=== PATIENT | female | born 1990 | race Caucasian/White ===

== ENCOUNTER → 2018-05-15 | Outpatient (CLI) | payer SELFPAY ==
[2018-05-15 14:34] LABS: Glucose 129 mg/dL (74-99)
[2018-05-15 14:45] LABS: HGB 11.8 gm/dL (11.4-16.0); MCH 33.1 pg (25.0-35.0); MCHC 34.7 g/dL (31.0-37.0); MCV 95.5 fL (80.0-100.0); Mean Platelet Volume 7.1; Platelet Count 290 k/uL (150-450); RBC 3.56 m/uL (3.80-5.40); WBC 8.5 k/uL (3.8-10.6)
== END | disposition home or self-care (01) ==
LOC: LABWHC1 13:35
PROVIDERS: ATTEND Obstetrics & Gynecology
DX: Z34.81 Encounter for supervision of other normal pregnancy, first trimester (principal); Z3A.00 Weeks of gestation of pregnancy not specified
CPT/HCPCS: 36415; 82565; 82947; 85027; 86762; 86780; 86850; 86900; 86901; 87340

== ENCOUNTER 2018-11-02 10:26 | Outpatient (CLI) | payer BC ==
[2018-11-02 10:39] VITALS: BP 117/67; PULSE 105; RESP 16; TEMP 97.2
--- NOTE | 2018-11-05 08:27 | P.MSEPDOC ---
Presenting Problems - Arrival Data Date of Arrival on Unit: 11/02/18 Time of Arrival on Unit: 10:26 Mode of Transport: Ambulatory - Complaint OB-Reason for Admission/Chief Complaint: NST Comment: decreased movement x 2 days Medical History - Information : 3 Para: 2 Term: 2 : 0 Abortions: Spontaneous or Elective: 0 Number of Living Children: 2 - Gestational Age Gestational Age by SAMIR (wks/days): 35 Weeks and 2 Days Review of Systems - Review of Systems Constitutional: No problems Breast: No problems ENT: No problems Cardiovascular: No problems Respiratory: No problems Gastrointestinal: No problems Genitourinary: No problems Musculoskeletal: No problems Neurological: No problems Skin: No problems Vital Signs - Temperature Temperature: 97.2 F Temperature Source: Temporal Artery Scan - Pulse Right Brachial Pulse Rate: 105 Pulse Assessment Method: Automatic Cuff - Respirations Respiratory Rate: 16 Oxygen Delivery Method: Room Air O2 Sat by Pulse Oximetry: 96 - Blood Pressure Right Arm Blood Pressure: 117/67 Blood Pressure Mean: 83 Blood Pressure Source: Automatic Cuff Medical Screen Scoring (Pre) - Cervical Exam Dilation: Exam Deferred Effacement: Exam Deferred Membranes: Intact - Uterine Contractions Frequency: N/A Duration: N/A Intensity: N/A - Maternal Vital Signs Maternal Temperature: N/A Maternal Blood Pressure: N/A - Pain Assessment Pain Scale Used: Numeric (1 - 10) Pain Intensity: 0 - Assessment Baseline FHR: 135 Heart Rate - NICHD Category: Category I (Normal) = 0 NST: Reactive Position: N/A Station: N/A - Total Score Total Score (Pre): 0 - Level of Risk Level of Risk: Low (0-5) Medical Screen Scoring (Post) - Assessment Heart Rate: 125 Heart Rate - NICHD Category: Category I (Normal) = 0 NST: Reactive - Total Score Total Score (Post): 0 - Post Treatment Level of Risk Post Treatment Level of Risk: Low (0-5) Physician Notification (Post) - Physician Notified Physician Notified Date: 11/02/18 Physician Notified Time: 11:06 Spoke With: Keaton Craig Order Received: Yes (d/c with instruction) - Notification Comment Comment: reactive, movement felt Disposition - Disposition OB Disposition: Discharge to home, Written follow up instructions reviewed Discharge Date: 11/02/18 Discharge Time: 11:10 I agree with the RN Medical Screening Exam: Yes Risk & Benefit of care provided described in d/c instruction: Yes Diagnosis: DECREASED MOVEMENTS, THIRD TRIMESTER, FETUS 1
== END 2018-11-02 11:10 | disposition home or self-care (01) ==
LOC: FBPOP 10:26
PROVIDERS: ATTEND Obstetrics & Gynecology
DX: O36.8131 Decreased fetal movements, third trimester, fetus 1 (principal); Z3A.35 35 weeks gestation of pregnancy
CPT/HCPCS: 59025; 99213

== ENCOUNTER 2018-12-05 12:00 | Inpatient (IN) | payer BC ==
[2018-12-06] MEDS ORDERED: AMPICILLIN 2,000 MG in SODIUM CHLORIDE 0.9% 100 ML IVPB STA (05:59)
[2018-12-06] MEDS ORDERED: METHYLERGONOVINE 0.2 MG/ML 1 ML AMP IM PRN (05:59)
[2018-12-06] MEDS ORDERED: OXYTOCIN 10 UNIT/ML 1 ML VIAL IM PRN (05:59)
[2018-12-06] MEDS ORDERED: TERBUTALINE 1 MG/ML VIAL SQ PRN (05:59)
[2018-12-06] MEDS ORDERED: LIDOCAINE 0.5% (PF) 5 MG/ML (50 ML SDV) SQ PRN (05:59)
[2018-12-06] MEDS ORDERED: CARBOPROST TROMETHAMINE 250 MCG/ML 1 ML AMP IM PRN (05:59)
[2018-12-06] MEDS ORDERED: OXYTOCIN 30 UNITS/500 ML NS 30 UNIT in SALINE 1 500ML.BAG IV SCH (05:59)
[2018-12-06] MEDS: LACTATED RINGERS 1,000 ML IV SCH ×3 (06:00→15:14)
[2018-12-06 06:10] VITALS: BMI 40.8
[2018-12-06 06:13] LABS: Anisocytosis Slight; Basophils % (A) 0 %; Eosinophils # (A) 0.1 k/uL (0-0.7); Eosinophils % (A) 1 %; HCT 35.4 % (34.0-46.0); HGB 11.4 gm/dL (11.4-16.0); Lymphocytes # (A) 3.1 k/uL (1.0-4.8); Lymphocytes % (A) 31 %; MCH 28.6 pg (25.0-35.0); MCHC 32.3 g/dL (31.0-37.0); MCV 88.4 fL (80.0-100.0); Mean Platelet Volume 9.2; Monocytes # (A) 0.5 k/uL (0-1.0); Monocytes % (A) 5 %; Neutrophils # (A) 6.2 k/uL (1.3-7.7); Neutrophils % (A) 61 %; Platelet Count 231 k/uL (150-450); RDW 17.7 % (11.5-15.5); WBC 10.2 k/uL (3.8-10.6)
--- NOTE | 2018-12-06 06:53 | P.HPOB ---
History of Present Illness H&P Date: 12/06/18 Chief Complaint: Requested induction of labor This patient is a pleasant 28-year-old 3 para 2 female estimated date of confinement 12/05/2018 estimated gestational age 40 and one sevenths weeks who presents to labor and delivery for requested induction of labor. Patient's care has been uncomplicated. Patient was placed on acyclovir at 36 weeks due to a past history of genital HSV. Patient has been uncomfortable and has requested delivery at this time. Review of Systems Gastrointestinal: Reports heartburn Genitourinary: Reports Menstruation: Reports amenorrhea Past Medical History Past Medical History: No Reported History History of Any Multi-Drug Resistant Organisms: None Reported Past Surgical History: No Surgical Hx Reported Past Anesthesia/Blood Transfusion Reactions: No Reported Reaction Past Psychological History: No Psychological Hx Reported Smoking Status: Never smoker Past Alcohol Use History: None Reported Past Drug Use History: None Reported - Past Family History Mother Additional Family Medical History / Comment(s): immuno-deficiency- unsure what type Medications and Allergies Home Medications Medication Instructions Recorded Confirmed Type Acyclovir 400 mg PO BID 12/06/18 12/06/18 History Pnv,Calcium 72/Iron/Folic Acid 1 each PO DAILY 12/06/18 12/06/18 History [ Plus Tablet] Allergies Allergy/AdvReac Type Severity Reaction Status Date / Time No Known Allergies Allergy Verified 12/06/18 05:54 Exam Vital Signs Temp Pulse Resp BP Pulse Ox 12/06/18 06:02 97.5 F L 115 H 16 140/84 98 Intake and Output 12/05/18 12/05/18 12/06/18 14:59 22:59 06:59 Other: Weight 97.976 kg - OBG Physical Exam Abdomen: bowel sounds normal, no diffuse tenderness, no bruit present, no guarding noted, no hepatomegaly, no splenomegaly, no mass Vulva: both: normal Vagina: normal moisture, no discharge Cervix: no lesion (Cervix is 2 cm and uneffaced minus 2 station), no discharge Uterus: enlarged (Fundal height is 40 cm) Results blood work shows she is A positive, rubella immune, RPR nonreactive, hepatitis B negative, Glucola was normal. Group B strep was positive. Most recent ultrasound showed the to be 6 lbs. 4 oz. normal anatomy. Estimated weight is 8 pounds. Result Diagrams: 12/06/18 06:02 Abnormal Lab Results - Last 24 Hours (Table) 12/06/18 Range/Units 06:02 RDW 17.7 H (11.5-15.5) % Assessment and Plan Assessment: This is a pleasant 28-year-old 3 para 2 female 40 and one sevenths weeks gestation admitted for requested induction of labor. Patient also has a positive culture for group B strep. Plan is antibiotic prophylaxis, i nduction of labor per protocol, and anticipate vaginal delivery. (1) 40 weeks gestation of Current Visit: Yes Status: Acute Code(s): Z3A.40 - 40 WEEKS GESTATION OF SNOMED Code(s): 02121526 (2) Positive testing for group B Streptococcus Current Visit: Yes Status: Acute Code(s): B95.1 - STREPTOCOCCUS, GROUP B, CAUSING DISEASES [facility] SNOMED Code(s): 373509862 (3) Elective induction of labor planned Current Visit: Yes Status: Acute Code(s): BYZ4312 - SNOMED Code(s): 681541204
[2018-12-06] MEDS: AMPICILLIN 1,000 MG in SODIUM CHLORIDE 0.9% 50 ML IVPB SCH ×2 (09:57→14:30)
[2018-12-06] MEDS ORDERED: BUTORPHANOL 1 MG/ML 1 ML VIAL IV PRN (10:04)
[2018-12-06] MEDS ORDERED: fentaNYL (PF) 50 MCG/ML 5 ML AMP ONE (13:35)
[2018-12-06] MEDS ORDERED: ROPIVACAINE 5MG/ML 20ML VIAL ONE (13:35)
[2018-12-06] MEDS ORDERED: SODIUM CHLORIDE 0.9% 100 ML BAG ONE (13:35)
[2018-12-06] MEDS ORDERED: CITRIC ACID-SODIUM CITRATE 15 ML CUP PO ONE (17:30)
[2018-12-06] MEDS ORDERED: LACTATED RINGERS 1,000 ML IV ONE (17:30)
[2018-12-06] MEDS ORDERED: ceFAZolin IN SWFI 2 GM/20 ML SYRINGE IVP ONE (17:30)
[2018-12-06] MEDS ORDERED: OXYTOCIN 10 UNIT/ML 1 ML VIAL ONE (17:55)
[2018-12-06] MEDS ORDERED: diphenhydrAMINE 50 MG/ML 1 ML VIAL ONE (17:55)
[2018-12-06] MEDS ORDERED: MORPHINE SULFATE (PF) 0.3 MG/0.3 ML SYR ONE (17:55)
[2018-12-06] MEDS ORDERED: KETOROLAC 30 MG/ML 1 ML VIAL ONE (17:55)
[2018-12-06] MEDS ORDERED: ePHEDrine SULFATE/0.9% NACL/PF 50 MG/5 ML SYRINGE IV ONE (17:55)
[2018-12-06] MEDS ORDERED: ONDANSETRON 4 MG/2 ML VIAL ONE (17:55)
[2018-12-06] MEDS ORDERED: LACTATED RINGERS 1,000 ML BAG IV ONE (17:55)
[2018-12-06] MEDS ORDERED: NALBUPHINE 10 MG/ML (1 ML AMP) ONE (17:55)
[2018-12-06] MEDS ORDERED: IBUPROFEN 600 MG TAB PO PRN (18:59)
[2018-12-06] MEDS ORDERED: NALOXONE 0.4 MG/ML 1 ML VIAL IV PRN (18:59)
[2018-12-06] MEDS ORDERED: METOCLOPRAMIDE 5 MG/ML 2 ML VIAL IVP PRN (18:59)
[2018-12-06] MEDS ORDERED: SIMETHICONE 80 MG CHEWABLE PO PRN (18:59)
[2018-12-06] MEDS ORDERED: ONDANSETRON 4 MG/2 ML VIAL IVP PRN (18:59)
[2018-12-06] MEDS ORDERED: diphenhydrAMINE 50 MG/ML 1 ML VIAL IVP PRN (18:59)
[2018-12-06] MEDS ORDERED: LANOLIN CREAM 5 GM TUBE TOPICAL PRN (18:59)
[2018-12-06] MEDS ORDERED: ACETAMINOPHEN TAB 325 MG TAB PO PRN (18:59)
[2018-12-06] MEDS ORDERED: diphenhydrAMINE 25 MG CAP PO PRN (18:59)
[2018-12-06] MEDS ORDERED: ZOLPIDEM 5 MG TAB PO PRN (18:59)
[2018-12-06] MEDS ORDERED: OXYTOCIN 20 UNITS/1000 ML NS 1,000 ML IV SCH (19:00)
--- NOTE | 2018-12-06 19:13 | P.OP ---
Date of Procedure: 12/06/18 Preoperative Diagnosis: #1: 40 and one sevenths week intrauterine . #2: Cephalopelvic dystocia. Postoperative Diagnosis: #1: Same. #2: Straight occiput posterior presentation. Procedure(s) Performed: Primary low transverse section Anesthesia: spinal Surgeon: Alexx Emmanuel Estimated Blood Loss (ml): 1,000 Urine output (ml): 100 Pathology: none sent Condition: stable Disposition: floor Indications for Procedure: Please see dictated H&P for intimate details of this patient's admission. Brief summary is a pleasant 28-year-old 3 para 2 female estimated gestational age 40 and one sevenths weeks gestation who is admitted to labor and delivery this morning for requested induction of labor. Patient is admitted she is 2 cm dilated has artificial rupture membranes for clear fluid. Labor is induced with Pitocin per protocol. She does progress and gets to anterior lip for approximately 3 hours without descent of the head past 0 station. At this time I discussed with the patient and her and we elected proceed with section for delivery. Patient does understand the risks of the surgery and risks of infection, bleeding, possible injury bowel, bladder, vessels, and/or other organs. All the patient's questions are answered and a written consent is obtained. Operative Findings: This is a vigorous viable male Apgars are 8 and 9 delivery time is 1809 hrs. Infant was then straight occiput posterior presentation. Description of Procedure: This patient has a Guerra catheter placed to straight drain. She subsequently taken to the operating room where spinal anesthetic is administered without incident. With an adequate level of anesthesia she has abdominal prep and drape. Scalpels and taken Pfannenstiel skin incision is then made. A second scalpel is taken down the fascia and the fascia scored with a knife. Fascial incision extended bilaterally using the Kang scissors. Fascia is then dissected off the rectus muscles sharply. Peritoneum was identified and entered sharply. Bladder blade is placed this time of note the bladder is up high on the lower uterine segment therefore is manually pushed down with gentle traction. Bladder peritoneum was then dissected sharply. Scalpels and taken a low transverse uterine incision is made. The hemostat I into the uterine cavity but leaving there is loss of clear fluid.'s is extended bluntly. Infant's head is then guided gently through the incision is straight occiput posterior presentation. Mouth and nares are bulb suctioned. There is no evidence of a nuchal cord. We then have deliver the rest this 's body. This is a vigorous viable male infant Apgars are 8 and 9 delivery time is 1809 hrs. After delivery of the infant the umbilical cord is doubly clamped and cut appears to be trivascular. The placenta is then manually extracted intact. Uterus is then externalized. The uterine incisions demarcated with Mcmahan clamps is quite edematous and tattered. Carefully using 0 Vicryl running locked fashion in 3 layers and closed the lower uterine segment. There is also an area on the right side which requires a [id number] stitches well. With excellent hemostasis noted at this time the bladder peritoneum was then closed using a 3-0 Vicryl. Excess fluid is removed from the abdomen and pelvis. Gently placed uterus back into the abdomen. Close careful inspection shows excellent hemostasis again. Excess clots removed from the abdomen as well as fluids. Uterus tubes and ovaries do appear normal for term gestation. The parietal peritoneum was then closed in 0 Vicryl running fashion. Rectus muscles reapproximated in 0 Vicryl interrupted fashion. Fascia is then closed using 0 PDS. Fascial incision is intact and hemostatic. Subcutaneous tissues and closed using a 3-0 Vicryl. Skin is and closed using jasmin. All counts are correct 3. Of note patient did have some blood we initially started surgery and her urine. To be traumatic in nature did clear up during surgery.. No complications.
[2018-12-06] MEDS ORDERED: HYDROmorphone 1 MG/ML 1 ML SYRINGE IVP STA (21:23)
[2018-12-07] MEDS: ceFAZolin IN SWFI 2 GM/20 ML SYRINGE IVP SCH ×2 (01:54→09:29)
[2018-12-07] MEDS: KETOROLAC 30 MG/ML 1 ML VIAL IVP PRN ×3 (02:08→17:42)
[2018-12-07] MEDS: LACTATED RINGERS 1,000 ML IV SCH ×2 (04:05→21:43)
--- NOTE | 2018-12-07 05:34 | P.PNOBGPC ---
Subjective - Subjective Patient reports: Reports appetite normal, Reports voiding normally, Reports pain well controlled, Reports ambulating normally : doing well Objective - Vital Signs Latest vital signs: Vital Signs Temp Pulse Resp BP Pulse Ox 12/07/18 04:00 98.1 F 108 H 14 119/81 12/07/18 00:00 98.3 F 110 H 14 137/82 99 12/06/18 21:15 97 16 123/60 98 12/06/18 20:45 82 16 140/74 12/06/18 20:15 83 16 149/82 98 12/06/18 20:00 98.0 F 93 16 158/81 100 12/06/18 19:45 98.1 F 82 16 135/75 98 12/06/18 19:05 100 16 90/54 95 12/06/18 18:51 98.8 F 102 H 16 97/55 95 12/06/18 06:02 97.5 F L 115 H 16 140/84 98 Intake and Output 12/06/18 12/06/18 12/07/18 14:59 22:59 06:59 Output Total 1100 450 Balance -1100 -450 Output: Urine 100 450 Estimated Blood Loss 1000 - Exam Lungs: bilateral: normal Chest: Normal S1, Normal S2 Extremities: Present: normal Abdomen: Present: normal appearance, soft. Absent: distention, tenderness Incision: Present: normal, dry, intact Uterus: Present: normal, firm - Labs Labs: Abnormal Lab Results - Last 24 Hours (Table) 12/06/18 Range/Units 06:02 RDW 17.7 H (11.5-15.5) % Assessment and Plan Assessment: Post operative day #1. Patient is resting without new complaints. Vital signs are stable she is afebrile. Uterus is firm nontender she is having normal lochia. Patient was able to ambulate last night and is having excellent urine output. CBC is pending, however I'm assuming her hemoglobin is going to be low today therefore I'm going to start her on some chromogen. Plan is to encourage ambulation, allow the patient to shower, check a CBC, advanced to a regular diet, and continue postoperative care. Dr. Wilkins will be seeing this patient over the weekend. (1) 40 weeks gestation of Current Visit: Yes Status: Acute Code(s): Z3A.40 - 40 WEEKS GESTATION OF SNOMED Code(s): 48852907 (2) Positive testing for group B Streptococcus Current Visit: Yes Status: Acute Code(s): B95.1 - STREPTOCOCCUS, GROUP B, CAUSING DISEASES [facility] SNOMED Code(s): 825889534 (3) Elective induction of labor planned Current Visit: Yes Status: Acute Code(s): HDS9169 - SNOMED Code(s): 516658016
[2018-12-07 07:00] LABS: Anisocytosis Slight; Basophils % (A) 0 %; Eosinophils % (A) 0 %; HCT 26.6 % (34.0-46.0); Hypochromasia Slight; Lymphocytes # (A) 1.8 k/uL (1.0-4.8); Lymphocytes % (A) 13 %; MCHC 32.2 g/dL (31.0-37.0); MCV 90.1 fL (80.0-100.0); Mean Platelet Volume 9.1; Monocytes # (A) 0.7 k/uL (0-1.0); Monocytes % (A) 5 %; Neutrophils # (A) 11.4 k/uL (1.3-7.7); Neutrophils % (A) 80 %; Platelet Count 178 k/uL (150-450); RBC 2.95 m/uL (3.80-5.40); WBC 14.2 k/uL (3.8-10.6)
[2018-12-07 07:12] LABS: HGB 8.5 gm/dL (11.4-16.0)
[2018-12-07] MEDS: SENNOSIDES-DOCUSATE SODIUM 1 EACH TAB PO SCH ×2 (07:53→21:44)
[2018-12-07] MEDS: IRON AG/C/B12/CA/SUC.ACID/STOM 1 EACH TAB PO SCH (07:53)
[2018-12-07] MEDS: HYDROcodone/APAP 5-325MG 1 EACH TAB PO PRN ×3 (07:54→21:56)
[2018-12-08] MEDS: HYDROcodone/APAP 5-325MG 1 EACH TAB PO PRN ×3 (02:07→11:01)
[2018-12-08] MEDS: AMPICILLIN 1,000 MG in SODIUM CHLORIDE 0.9% 50 ML IVPB SCH (03:26)
--- NOTE | 2018-12-08 06:48 | P.DS ---
Providers Date of admission: 12/06/18 05:45 Expected date of discharge: 12/08/18 Attending physician: Alexx Emmanuel Primary care physician: Stated None Hospital Course: This is a 28-year-old female 3 para 2 at 40 and one sevenths weeks who presented for induction of labor. She ended up with a primary section for failure to progress and delivered a viable male with scores of 8 at 1 minute and 9 at 5 minutes and weight of 8 lbs. 7 oz. She did have postoperative anemia and her hemoglobin did drop to 8.5 on postoperative day #1. She has been relatively asymptomatic. She denies any dizziness or lightheadedness. She is passing flatus and bowel movement. Her pain has been fairly well-controlled with Grand Chain. Lochia is decreasing. She is breast- feeding. Vital signs are stable. Abdomen is soft with positive bowel sounds 4. Incision is clean dry and intact. Extremities show negative Homans. Impression is status post primary section postoperative day #2. Plan is to discharge home later today. Routine postoperative and instructions are given. She will be given a prescription for ibuprofen and Grand Chain per Dr. Emmanuel. Opioid start talking form is signed. She is counseled regarding opioid use. She is advised to follow up with Dr. Emmanuel in approximately 1 week. She is advised to call the office if she has any further questions or concerns prior to her appointment time. Procedures: Primary low transverse section on 12/06/2018 Patient Condition at Discharge: Stable Plan - Discharge Summary New Discharge Prescriptions: New Ibuprofen [Motrin] 600 mg PO Q6HR PRN #40 tab PRN Reason: Mild Pain Or Fever >= 100.5 Iron Ag/C/B12/Ca/Suc.acid/Stom [Multigen] 1 each PO DAILY #30 tab HYDROcodone/APAP 5-325MG [Grand Chain 5-325] 2 each PO Q4HR PRN #36 tab PRN Reason: Moderate Pain No Action Acyclovir 400 mg PO BID Pnv,Calcium 72/Iron/Folic Acid [ Plus Tablet] 1 each PO DAILY Discharge Medication List Acyclovir 400 mg PO BID 12/06/18 [History] Pnv,Calcium 72/Iron/Folic Acid [ Plus Tablet] 1 each PO DAILY 12/06/18 [History] HYDROcodone/APAP 5-325MG [Grand Chain 5-325] 2 each PO Q4HR PRN #36 tab 12/07/18 [Rx] Ibuprofen [Motrin] 600 mg PO Q6HR PRN #40 tab 12/07/18 [Rx] Iron Ag/C/B12/Ca/Suc.acid/Stom [Multigen] 1 each PO DAILY #30 tab 12/07/18 [Rx] Follow up Appointment(s)/Referral(s): Alexx Emmanuel MD [STAFF PHYSICIAN] - 12/18/18 1:30 pm (Please see me for a visit on January 21 at 9:30 AM also.) Patient Instructions/Handouts: (DC) Activity/Diet/Wound Care/Special Instructions: No intercourse or anything per vagina for 6 weeks. No heavy lifting or strenuous activity for 6 weeks. Please call if any fever, chills, excessive vaginal bleeding, and/or abdominal pain. Discharge Disposition: HOME SELF-CARE
[2018-12-08] MEDS: SENNOSIDES-DOCUSATE SODIUM 1 EACH TAB PO SCH (09:08)
[2018-12-08 09:58] VITALS: BP 133/84; PULSE 113; RESP 14; TEMP 98.4
[2018-12-08] MEDS: IRON AG/C/B12/CA/SUC.ACID/STOM 1 EACH TAB PO SCH (11:02)
== END 2018-12-08 12:44 | disposition home or self-care (01) | DRG 788 ==
LOC: 4FBP 12-06 05:45
PROVIDERS: ADMIT Obstetrics & Gynecology; ATTEND Obstetrics & Gynecology
PROC: 10907ZC Drainage of Amniotic Fluid, Therapeutic from Products of Conception, Via Natural or Artificial Opening (ICD-10-PCS; 2018-12-06)
PROC: 3E033VJ Introduction of Other Hormone into Peripheral Vein, Percutaneous Approach (ICD-10-PCS; 2018-12-06)
PROC: 10D00Z1 Extraction of Products of Conception, Low, Open Approach (ICD-10-PCS; principal; 2018-12-06 17:48)
DX: O65.4 Obstructed labor due to fetopelvic disproportion, unspecified (principal); O99.824 Streptococcus B carrier state complicating childbirth; O99.02 Anemia complicating childbirth; D64.9 Anemia, unspecified; O62.2 Other uterine inertia; Z37.0 Single live birth; Z3A.40 40 weeks gestation of pregnancy
CPT/HCPCS: 85025; 86850; 86900; 86901

== ENCOUNTER → 2021-07-22 | Outpatient (CLI) | payer BC ==
[2021-07-22 15:36] LABS: Basophils # (A) 0.1 k/uL (0-0.2); Basophils % (A) 1 %; Eosinophils # (A) 0.1 k/uL (0-0.7); Eosinophils % (A) 1 %; HCT 39.1 % (34.0-46.0); HGB 13.2 gm/dL (11.4-16.0); Lymphocytes # (A) 2.7 k/uL (1.0-4.8); Lymphocytes % (A) 30 %; MCH 32.2 pg (25.0-35.0); MCHC 33.8 g/dL (31.0-37.0); MCV 95.3 fL (80.0-100.0); Monocytes # (A) 0.4 k/uL (0-1.0); Monocytes % (A) 4 %; Neutrophils # (A) 5.7 k/uL (1.3-7.7); Neutrophils % (A) 64 %; Platelet Count 239 k/uL (150-450); RDW 12.1 % (11.5-15.5)
== END | disposition home or self-care (01) ==
LOC: LABWHC1 14:18
PROVIDERS: ATTEND Obstetrics & Gynecology
DX: Z01.812 Encounter for preprocedural laboratory examination (principal)
CPT/HCPCS: 85025

== ENCOUNTER 2021-07-29 06:25 | Day surgery (SDC) | payer BC ==
[2021-07-27 15:47] VITALS: BMI 34.0
--- NOTE | 2021-07-28 18:37 | P.HPOB ---
History of Present Illness H&P Date: 07/28/21 Chief Complaint: Menorrhagia This patient is a pleasant 31-year-old 3 para 3 female who has had long- standing menorrhagia is now requesting endometrial ablation for treatment. Patient's evaluation has included a pelvic ultrasound which was normal. Patient is not interested in hormonal options for cycle control is requesting ablation at this time. Patient's partner her has had a vasectomy for control. Review of Systems Genitourinary: Reports as per HPI Menstruation: Reports as per HPI, Reports period heavy Past Medical History Past Medical History: No Reported History Additional Past Medical History / Comment(s): heavy long menstrual periods for past year History of Any Multi-Drug Resistant Organisms: None Reported Past Surgical History: Section Past Anesthesia/Blood Transfusion Reactions: Motion Sickness, Postoperative Nausea & Vomiting (PONV) Additional Past Anesthesia/Blood Transfusion Reaction / Comment(s): felt like diff breathing during Past Psychological History: No Psychological Hx Reported Smoking Status: Never smoker Past Drug Use History: None Reported - Past Family History Mother Additional Family Medical History / Comment(s): immuno-deficiency- unsure what type Medications and Allergies Home Medications Medication Instructions Recorded Confirmed Type Acyclovir 400 mg PO BID PRN 12/06/18 07/27/21 History Allergies Allergy/AdvReac Type Severity Reaction Status Date / Time No Known Allergies Allergy Verified 07/27/21 15:39 Exam - OBG Physical Exam Abdomen: bowel sounds normal, no diffuse tenderness, no bruit present, no guarding noted, no hepatomegaly, no splenomegaly, no mass Vulva: both: normal Vagina: normal moisture, no discharge Cervix: no lesion, no discharge Uterus: normal size, normal contour Results Ultrasound previously was normal. Assessment and Plan Assessment: This is a pleasant 31-year-old 3 para 3 female with long-standing menorrhagia requesting endometrial ablation. Plan is hysteroscopy, D&C, and Jennifer endometrial ablation. I have discussed the surgery and risks with the patient. She understands the risks of infection, bleeding, possible uterine perforation, and/or thermal injury. All the patient's questions are answered and written consent is obtained. (1) Menorrhagia Status: Chronic Code(s): N92.0 - EXCESSIVE AND FREQUENT MENSTRUATION WITH REGULAR CYCLE SNOMED Code(s): 535869678
[~2021-07-29 06:25] MED LIST: LACTATED RINGERS 1,000 ML IV SCH; Pre Op ABX Message 1 EACH MISC MISCELLANE ONE
[2021-07-29] MEDS ORDERED: LIDOCAINE 1% (10MG/ML) FOR IV START INTRADERMA ONE (06:57)
[2021-07-29] MEDS ORDERED: HYDROmorphone 0.5 MG/0.5 ML SYRINGE IVP PRN (07:00)
[2021-07-29 07:04] VITALS: RESP 16
[2021-07-29] MEDS: ONDANSETRON 4 MG/2 ML VIAL IVP ONE ×2 (07:04→07:38)
[2021-07-29] MEDS: DEXAMETHASONE SOD PHOSPHATE 4 MG/ML 1 ML VIAL IV ONE ×2 (07:04→07:38)
[2021-07-29] MEDS ORDERED: SCOPOLAMINE 1.5MG/72HR PATCH TRANSDERM ONE (07:04)
[2021-07-29] MEDS ORDERED: fentaNYL (PF) 50 MCG/ML 2 ML AMP ONE (07:36)
[2021-07-29] MEDS ORDERED: PROPOFOL 10 MG/ML 20 ML VIAL IV ONE (07:36)
[2021-07-29] MEDS ORDERED: KETOROLAC 15 MG/ML 1 ML VIAL ONE (07:36)
[2021-07-29] MEDS ORDERED: LIDOCAINE 1% INJ 10MG/ML (20 ML MDV) ONE (07:36)
[2021-07-29] MEDS ORDERED: MIDAZOLAM 2 MG/2 ML VIAL ONE (07:36)
--- NOTE | 2021-07-29 08:18 | P.OP ---
Date of Procedure: 07/29/21 Preoperative Diagnosis: Menorrhagia Postoperative Diagnosis: Same Procedure(s) Performed: #1: Hysteroscopy. #2: Dilation and curettage. #3:Jennifer endometrial ablation Anesthesia: other (LMA) Surgeon: Alexx Emmanuel Estimated Blood Loss (ml): 10 Urine output (ml): 20 Pathology: other (Uterine curettings) Condition: stable Disposition: PACU Indications for Procedure: Please see dictated H&P for intimate details of this patient's admission. Brief summary this is a pleasant 31-year-old 3 para 3 female long-standing menorrhagia requesting endometrial ablation for treatment. Patient understands this surgery and risks and risks of infection, bleeding, possible uterine perforation, and/or thermal injury. All the patient's questions are answered and a written consent is obtained. Operative Findings: This patient had a normal-appearing endometrial cavity. Description of Procedure: This patient is taken to the operating room where she is laid in the supine position. She subsequent undergoes general anesthesia without incident. With adequate level of anesthesia was placed in dorsal lithotomy position. She has a vaginal perineal prep and drape. Examination under anesthesia shows a slightly retroverted uterus of normal size. Bladder is drained at this time for 20 mL of clear urine. Weighted speculum was placed in the posterior vagina and the anterior lip of the cervix is grabbed with an Allis clamp. Uterus is then sounded to 8.5 cm. Gentle dilation is then done of the endocervix to allow the hysteroscope easily and the uterine cavity oozing saline solution, hysteroscopy is performed and the uterine cavity length is calculated to be 6 cm. There is no evidence of any polyps or fibroids and the endometrium. The hysteroscope was then removed. The cervix is dilated slightly more to allow a small curette in the uterine cavity and gentle but thorough 4 quadrant curettage is then done. This tissue sent off to pathology. The Jennifer device is then opened. It is se t at a length of 6.0 cm. It is connected and passes the device test. With this done the handpieces seated in the uterine cavity. After insufflation of the balloon the device is enabled after passing cavity integrity test. After 120 seconds the device is removed. Hysteroscopy is then performed again. Cavity appears ablated up to the endocervix. Excellent results are noted. With this done the procedure is then ended. The weighted speculum and Allis clamp removed. All counts are correct 3. There are no complications. Patient is awakened from anesthesia and taken recovery room satisfactory condition.
[2021-07-29 08:21] VITALS: TEMP 97
[2021-07-29 09:41] VITALS: BP 137/63; PULSE 89
== END 2021-07-29 10:25 | disposition home or self-care (01) ==
LOC: OR 06:25
PROVIDERS: ATTEND Obstetrics & Gynecology
DX: N92.0 Excessive and frequent menstruation with regular cycle (principal)
CPT/HCPCS: 58563; 81025; 88305; 84703; J2250; J1100; J2405; J2001; J3010; J1885; J2704

== ENCOUNTER 2022-01-04 16:17 | Emergency (ER) | payer BC ==
[2022-01-04 16:42] VITALS: TEMP 98.2
[2022-01-04 17:19] LABS: ALT 35 U/L (4-34); AST 61 U/L (14-36); African American GFR (CKD) >90 (>60 ml/min/1.73 sqM); Albumin 4.8 g/dL (3.5-5.0); Alkaline Phosphatase 69 U/L (38-126); Anion Gap 10 mmol/L; Blood Urea Nitrogen 15 mg/dL (7-17); Calcium 9.7 mg/dL (8.4-10.2); Carbon Dioxide 23 mmol/L (22-30); Chloride 103 mmol/L (98-107); Glucose 110 mg/dL (74-99); Non-African American GFR(CKD) >90 (>60 ml/min/1.73 sqM); Potassium 4.2 mmol/L (3.5-5.1); Sodium 136 mmol/L (137-145); Total Protein 7.7 g/dL (6.3-8.2)
[2022-01-04 17:22] LABS: Basophils % (A) 1 %; Eosinophils # (A) 0.1 k/uL (0-0.7); Eosinophils % (A) 1 %; HGB 13.7 gm/dL (11.4-16.0); Lymphocytes # (A) 2.8 k/uL (1.0-4.8); Lymphocytes % (A) 36 %; MCH 31.3 pg (25.0-35.0); MCHC 32.6 g/dL (31.0-37.0); MCV 96.1 fL (80.0-100.0); Mean Platelet Volume 8.5; Monocytes # (A) 0.3 k/uL (0-1.0); Monocytes % (A) 4 %; Neutrophils # (A) 4.3 k/uL (1.3-7.7); Neutrophils % (A) 56 %; Platelet Count 238 k/uL (150-450); RBC 4.37 m/uL (3.80-5.40); RDW 12.5 % (11.5-15.5); WBC 7.7 k/uL (3.8-10.6)
[2022-01-04 17:26] LABS: INR 0.9 (<1.2); Partial Thromboplastin Time 26.2 sec (22.0-30.0); Prothrombin Time 10.2 sec (9.0-12.0)
[2022-01-04] MEDS ORDERED: MAG HYDROX/AL HYDROX/SIMETH 30 ML, HYOSCYAMINE ELIXIR 10 ML, LIDOCAINE VISCOUS 2% 10 ML PO STA ×3 (18:10)
--- NOTE | 2022-01-04 18:36 | ED ---
General Adult HPI - General Chief complaint: Chest Pain Stated complaint: Chest pain/abd pain Time Seen by Provider: 01/04/22 17:59 Source: patient Mode of arrival: ambulatory Limitations: no limitations - History of Present Illness Initial comments: Dictation was produced using [employer] dictation software. please excuse any grammatical, word or spelling errors. Chief Complaint: 31-year-old female presents to the emergency Department with abdominal pain and chest pain History of Present Illness:. 31-year-old female she has no significant comorbidities. Today she began experiencing epigastric abdominal pain. States after several minutes the symptoms felt like it was in her chest. She states that it was like a burning sensation. Nonradiating. Not associated with nausea or diaphoresis. Patient denies any history of heart problems. They do however have some family history of coronary artery disease. Patient states that her symptoms feel worse when she lies flat and when she tries to eat. She had some spicy food yesterday that she normally doesn't have spicy food. The ROS documented in this emergency department record has been reviewed and confirmed by me. Those systems with pertinent positive or negative responses have been documented in the HPI. All other systems are other negative and/or noncontributory. PHYSICAL EXAM: General Impression: Alert and oriented x3, not in acute distress HEENT: Normocephalic atraumatic, extra-ocular movements intact, pupils equal and reactive to light bilaterally, mucous membranes moist. Cardiovascular: Heart regular rate and rhythm Chest: Able to complete full sentences, no retractions, no tachypnea Abdomen: abdomen soft, non-tender, non-distended, no organomegaly Musculoskeletal: Pulses present and equal in all extremities, no peripheral edema Motor: no focal deficits noted Neurological: CN II-XII grossly intact, no focal motor or sensory deficits noted Skin: Intact with no visualized rashes Psych: Normal affect and mood ED course: 31-year-old female presents to the emergency Department with symptoms suspicious for reflux. Vital signs upon arrival are within acceptable limits. Her symptoms are very atypical for ACS. Patient reevaluated after administration of GI cocktail with significantly improved symptoms. Patient is a symptomatic. Patient is agreeable for discharge of eyes follow-up with primary care doctor. Patient told to avoid spicy foods, alcohol, large meals and eating close to bedtime. Patient advised to belt picker [id number] proton pump inhibitor. EKG interpretation: Ventricular rate 90, sinus rhythm,. 131, Gabino 100, QTC 410. No KS prolongation, no QTC prolongation, no ST or T-wave changes noted. EKG compared to [default value] showing no changes. Overall, this EKG is unremarkable - Related Data Home Medications Medication Instructions Recorded Confirmed Fluconazole [Diflucan] 150 mg PO QMONTHLY 01/04/22 01/04/22 Allergies Allergy/AdvReac Type Severity Reaction Status Date / Time No Known Allergies Allergy Verified 01/04/22 16:41 Review of Systems ROS Statement: Those systems with pertinent positive or pertinent negative responses have been documented in the HPI. ROS Other: All systems not noted in ROS Statement are negative. Past Medical History Past Medical History: No Reported History History of Any Multi-Drug Resistant Organisms: None Reported Past Surgical History: No Surgical Hx Reported Additional Past Surgical History / Comment(s): D&C Past Anesthesia/Blood Transfusion Reactions: No Reported Reaction Past Psychological History: No Psychological Hx Reported Past Alcohol Use History: Occasional - Past Family History Mother Additional Family Medical History / Comment(s): immuno-deficiency- unsure what type General Exam Limitations: no limitations Course Vital Signs 01/04/22 01/04/22 01/04/22 16:37 18:41 18:54 Temperature 98.2 F Pulse Rate 87 70 78 Respiratory 24 16 16 Rate Blood Pressure 119/76 109/77 109/77 O2 Sat by Pulse 100 97 98 Oximetry Medical Decision Making - Lab Data Result diagrams: 01/04/22 16:46 01/04/22 16:46 Lab Results 01/04/22 01/04/22 01/04/22 Range/Units 16:46 16:46 16:46 WBC 7.7 (3.8-10.6) k/uL RBC 4.37 (3.80-5.40) m/uL Hgb 13.7 (11.4-16.0) gm/dL Hct 42.0 (34.0-46.0) % MCV 96.1 (80.0-100.0) fL MCH 31.3 (25.0-35.0) pg MCHC 32.6 (31.0-37.0) g/dL RDW 12.5 (11.5-15.5) % Plt Count 238 (150-450) k/uL MPV 8.5 Neutrophils % 56 % Lymphocytes % 36 % Monocytes % 4 % Eosinophils % 1 % Basophils % 1 % Neutrophils # 4.3 (1.3-7.7) k/uL Lymphocytes # 2.8 (1.0-4.8) k/uL Monocytes # 0.3 (0-1.0) k/uL Eosinophils # 0.1 (0-0.7) k/uL Basophils # 0.0 (0-0.2) k/uL PT 10.2 (9.0-12.0) sec INR 0.9 (<1.2) APTT 26.2 (22.0-30.0) sec Sodium 136 L (137-145) mmol/L Potassium 4.2 (3.5-5.1) mmol/L Chloride 103 (98-107) mmol/L Carbon Dioxide 23 (22-30) mmol/L Anion Gap 10 mmol/L BUN 15 (7-17) mg/dL Creatinine 0.61 (0.52-1.04) mg/dL Est GFR (CKD-EPI)AfAm >90 (>60 ml/min/1.73 sqM) Est GFR (CKD-EPI)NonAf >90 (>60 ml/min/1.73 sqM) Glucose 110 H (74-99) mg/dL Calcium 9.7 (8.4-10.2) mg/dL Total Bilirubin 1.0 (0.2-1.3) mg/dL AST 61 H (14-36) U/L ALT 35 H (4-34) U/L Alkaline Phosphatase 69 (38-126) U/L Troponin I (0.000-0.034) ng/mL Total Protein 7.7 (6.3-8.2) g/dL Albumin 4.8 (3.5-5.0) g/dL 01/04/22 Range/Units 16:46 WBC (3.8-10.6) k/uL RBC (3.80-5.40) m/uL Hgb (11.4-16.0) gm/dL Hct (34.0-46.0) % MCV (80.0-100.0) fL MCH (25.0-35.0) pg MCHC (31.0-37.0) g/dL RDW (11.5-15.5) % Plt Count (150-450) k/uL MPV Neutrophils % % Lymphocytes % % Monocytes % % Eosinophils % % Basophils % % Neutrophils # (1.3-7.7) k/uL Lymphocytes # (1.0-4.8) k/uL Monocytes # (0-1.0) k/uL Eosinophils # (0-0.7) k/uL Basophils # (0-0.2) k/uL PT (9.0-12.0) sec INR (<1.2) APTT (22.0-30.0) sec Sodium (137-145) mmol/L Potassium (3.5-5.1) mmol/L Chloride (98-107) mmol/L Carbon Dioxide (22-30) mmol/L Anion Gap mmol/L BUN (7-17) mg/dL Creatinine (0.52-1.04) mg/dL Est GFR (CKD-EPI)AfAm (>60 ml/min/1.73 sqM) Est GFR (CKD-EPI)NonAf (>60 ml/min/1.73 sqM) Glucose (74-99) mg/dL Calcium (8.4-10.2) mg/dL Total Bilirubin (0.2-1.3) mg/dL AST (14-36) U/L ALT (4-34) U/L Alkaline Phosphatase (38-126) U/L Troponin I <0.012 (0.000-0.034) ng/mL Total Protein (6.3-8.2) g/dL Albumin (3.5-5.0) g/dL Disposition Clinical Impression: GERD (gastroesophageal reflux disease) Disposition: HOME SELF-CARE Condition: Fair Instructions (If sedation given, give patient instructions): GERD (Gastroe sophageal Reflux Disease) (ED) Additional Instructions: take daily proton pump inhibitor that can be picked up over the counter Is patient prescribed a controlled substance at d/c from ED?: No Referrals: Vidya Jung MD [Primary Care Provider] - 1-2 days Time of Disposition: 19:24
[2022-01-04 18:54] VITALS: RESP 16
[2022-01-04 19:37] VITALS: BP 111/61; PULSE 84
== END 2022-01-04 19:37 | disposition home or self-care (01) ==
LOC: EC 16:17
DX: K21.9 Gastro-esophageal reflux disease without esophagitis (principal)
CPT/HCPCS: 36415; 80053; 84484; 85025; 85610; 85730; 93005; 99285

== ENCOUNTER → 2022-07-14 | Outpatient (CLI) | payer BC ==
[2022-07-14 19:36] LABS: HCT 41.6 % (37.2-46.3); HGB 13.4 g/dL (12.0-15.0); MCH 31.2 pg (27.0-32.0); MCHC 32.2 g/dL (32.0-37.0); Mean Platelet Volume 12.8 fL (9.5-12.2); NRBC Per 100 WBC 0 /100 WBCS (0.0-0.0); Platelet Count 157 X 10*3/uL (140-440); RBC 4.29 X 10*6/uL (4.10-5.20); RDW 11.6 % (11.5-14.5); WBC 5.64 X 10*3/uL (4.50-10.00)
[2022-07-14 22:41] LABS: African American GFR (CKD) 133.8 (60.0-200.0); Albumin 4.7 g/dL (3.8-4.9); Albumin/Globulin Ratio 1.96 (1.60-3.17); Anion Gap 10.9 mmol/L (10.00-18.00); BUN/Creat Ratio 20.73 Ratio (12.00-20.00); Blood Urea Nitrogen 13.6 mg/dL (9.0-27.0); Carbon Dioxide 27.3 mmol/L (20.0-27.5); Globulin 2.4 g/dL (1.6-3.3); Non-African American GFR(CKD) 115.5 (60.0-200.0); Potassium 4.7 mmol/L (3.5-5.5); Total Bilirubin 1.1 mg/dL (0.30-1.20); Total Protein 7.1 g/dL (6.2-8.2)
== END | disposition home or self-care (01) ==
LOC: LABWHC1 11:12
PROVIDERS: ATTEND Family Medicine
DX: I10 Essential (primary) hypertension (principal); Z79.899 Other long term (current) drug therapy
CPT/HCPCS: 36415; 80053; 82784; 83690; 84443; 85027

== ENCOUNTER 2022-07-19 00:56 | Observation (INO) | payer BC ==
[2022-07-19] MEDS ORDERED: MORPHINE SULFATE 4 MG/ML SYRINGE IV STA (01:36)
[2022-07-19] MEDS ORDERED: SODIUM CHLORIDE 0.9% 1,000 ML IV STA ×2 (01:36)
[2022-07-19] MEDS ORDERED: KETOROLAC 15 MG/ML 1 ML VIAL IVP STA (01:36)
--- NOTE | 2022-07-19 01:37 | ED ---
Abdominal Pain HPI - General Source: patient, RN notes reviewed, old records reviewed Mode of arrival: ambulatory Limitations: no limitations - History of Present Illness MD Complaint: abdominal pain, other (RUQ) -: week(s) Location: diffuse, RUQ, epigastric Radiation: RUQ Migration to: no migration Severity: moderate Severity scale (1-10): 7 Quality: stabbing, fullness, sharp Consistency: intermittent Improves With: nothing, bowel movement Context: other (0) Associated Symptoms: nausea Treatments Prior to Arrival: other (0) <Scooby Connelly - Last Filed: 07/19/22 04:39> <Stone Thompson - Last Filed: 07/19/22 08:31> - General Chief Complaint: Abdominal Pain Stated Complaint: abd pain,gallbladder Time Seen by Provider: 07/19/22 01:36 - Related Data Home Medications Medication Instructions Recorded Confirmed Fluconazole [Diflucan] 150 mg PO QMONTHLY 01/04/22 01/04/22 Allergies Allergy/AdvReac Type Severity Reaction Status Date / Time No Known Allergies Allergy Verified 07/19/22 01:17 Review of Systems ROS Other: All systems not noted in ROS Statement are negative. <Scooby Connelly - Last Filed: 07/19/22 04:39> ROS Other: All systems not noted in ROS Statement are negative. <Stone Thompson - Last Filed: 07/19/22 08:31> ROS Statement: Those systems with pertinent positive or pertinent negative responses have been documented in the HPI. Past Medical History Past Medical History: No Reported History History of Any Multi-Drug Resistant Organisms: None Reported Past Surgical History: No Surgical Hx Reported Additional Past Surgical History / Comment(s): D&C Past Anesthesia/Blood Transfusion Reactions: No Reported Reaction Past Psychological History: No Psychological Hx Reported Smoking Status: Never smoker Past Alcohol Use History: Occasional Past Drug Use History: None Reported - Past Family History Mother Additional Family Medical History / Comment(s): immuno-deficiency- unsure what type <Scooby Connelly - Last Filed: 07/19/22 04:39> General Exam Limitations: no limitations General appearance: alert, in no apparent distress Head exam: Present: atraumatic, normocephalic, normal inspection Eye exam: Present: normal appearance, PERRL, EOMI. Absent: scleral icterus, conjunctival injection, periorbital swelling ENT exam: Present: normal exam, mucous membranes moist Neck exam: Present: normal inspection. Absent: tenderness, meningismus, lymphadenopathy Respiratory exam: Present: normal lung sounds bilaterally. Absent: respiratory distress, wheezes, rales, rhonchi, stridor Cardiovascular Exam: Present: regular rate, normal rhythm, normal heart sounds. Absent: systolic murmur, diastolic murmur, rubs, gallop, clicks GI/Abdominal exam: Present: soft, tenderness, normal bowel sounds. Absent: distended, guarding, rebound, rigid Extremities exam: Present: normal inspection, full ROM, normal capillary refill. Absent: tenderness, pedal edema, joint swelling, calf tenderness Back exam: Present: normal inspection Neurological exam: Present: alert, oriented X3, CN II-XII intact Psychiatric exam: Present: normal affect, normal mood Skin exam: Present: warm, dry, intact, normal color. Absent: rash <Scooby Connelly - Last Filed: 07/19/22 04:39> Course <Scooby Connelly - Last Filed: 07/19/22 04:39> Vital Signs 07/19/22 07/19/22 07/19/22 01:13 04:27 05:53 Temperature 97.8 F Pulse Rate 88 87 89 Respiratory 20 16 16 Rate Blood Pressure 150/80 116/75 112/73 O2 Sat by Pulse 99 98 98 Oximetry 07/19/22 07:46 Temperature Pulse Rate 99 Respiratory 16 Rate Blood Pressure 103/67 O2 Sat by Pulse 99 Oximetry - Reevaluation(s) Reevaluation #1: 07/19/22 04:40 medical record is reviewed (Scooby Connelly) Medical Decision Making - Lab Data Result diagrams: 07/19/22 02:03 07/19/22 02:03 <Scooby Connelly - Last Filed: 07/19/22 04:39> - Lab Data Result diagrams: 07/19/22 02:03 07/19/22 02:03 <Stone Thompson - Last Filed: 07/19/22 08:31> - Medical Decision Making Patient care was signed out to me at 7 AM. Patient sounds to follow-up with pending ultrasound. Patient is a 32-year-old female presents emergency Department with suspicion of acute gallbladder disease. Labs and imaging were reviewed. Ultrasound is obtained. Ultrasound report was reviewed showing cholelithiasis with possible gallbladder polyps and mild wall thickening with positive sonographic Haynes sign consistent with acute cholecystitis. Patient given Zosyn. This was discussed with general surgeon, Dr. Gr was went except patient's care. Patient reevaluated at bedside 8:[address] able condition. She does report active symptoms in the right upper quadrant. (Stone Thompson) - Lab Data Lab Results 07/19/22 07/19/22 07/19/22 Range/Units 02:03 02:03 02:03 WBC 9.6 (3.8-10.6) k/uL RBC 3.85 (3.80-5.40) m/uL Hgb 12.4 (11.4-16.0) gm/dL Hct 35.9 (34.0-46.0) % MCV 93.2 (80.0-100.0) fL MCH 32.3 (25.0-35.0) pg MCHC 34.7 (31.0-37.0) g/dL RDW 11.4 L (11.5-15.5) % Plt Count 184 (150-450) k/uL MPV 8.4 Neutrophils % 62 % Lymphocytes % 32 % Monocytes % 4 % Eosinophils % 1 % Basophils % 1 % Neutrophils # 5.9 (1.3-7.7) k/uL Lymphocytes # 3.1 (1.0-4.8) k/uL Monocytes # 0.4 (0-1.0) k/uL Eosinophils # 0.1 (0-0.7) k/uL Basophils # 0.1 (0-0.2) k/uL PT 9.9 (9.0-12.0) sec INR 0.9 (<1.2) APTT 26.2 (22.0-30.0) sec Sodium 136 L (137-145) mmol/L Potassium 4.0 (3.5-5.1) mmol/L Chloride 105 (98-107) mmol/L Carbon Dioxide 26 (22-30) mmol/L Anion Gap 5 mmol/L BUN 16 (7-17) mg/dL Creatinine 0.56 (0.52-1.04) mg/dL Est GFR (CKD-EPI)AfAm >90 (>60 ml/min/1.73 sqM) Est GFR (CKD-EPI)NonAf >90 (>60 ml/min/1.73 sqM) Glucose 103 H (74-99) mg/dL Calcium 9.1 (8.4-10.2) mg/dL Total Bilirubin 0.7 (0.2-1.3) mg/dL AST 206 H (14-36) U/L ALT 79 H (4-34) U/L Alkaline Phosphatase 75 (38-126) U/L Total Protein 6.6 (6.3-8.2) g/dL Albumin 4.0 (3.5-5.0) g/dL Amylase 52 (30-110) U/L Lipase 109 (23-300) U/L Urine HCG, Qual (Not Detectd) 07/19/22 Range/Units 02:34 WBC (3.8-10.6) k/uL RBC (3.80-5.40) m/uL Hgb (11.4-16.0) gm/dL Hct (34.0-46.0) % MCV (80.0-100.0) fL MCH (25.0-35.0) pg MCHC (31.0-37.0) g/dL RDW (11.5-15.5) % Plt Count (150-450) k/uL MPV Neutrophils % % Lymphocytes % % Monocytes % % Eosinophils % % Basophils % % Neutrophils # (1.3-7.7) k/uL Lymphocytes # (1.0-4.8) k/uL Monocytes # (0-1.0) k/uL Eosinophils # (0-0.7) k/uL Basophils # (0-0.2) k/uL PT (9.0-12.0) sec INR (<1.2) APTT (22.0-30.0) sec Sodium (137-145) mmol/L Potassium (3.5-5.1) mmol/L Chloride (98-107) mmol/L Carbon Dioxide (22-30) mmol/L Anion Gap mmol/L BUN (7-17) mg/dL Creatinine (0.52-1.04) mg/dL Est GFR (CKD-EPI)AfAm (>60 ml/min/1.73 sqM) Est GFR (CKD-EPI)NonAf (>60 ml/min/1.73 sqM) Glucose (74-99) mg/dL Calcium (8.4-10.2) mg/dL Total Bilirubin (0.2-1.3) mg/dL AST (14-36) U/L ALT (4-34) U/L Alkaline Phosphatase (38-126) U/L Total Protein (6.3-8.2) g/dL Albumin (3.5-5.0) g/dL Amylase (30-110) U/L Lipase (23-300) U/L Urine HCG, Qual Not Detected (Not Detectd) Disposition <Scooby Connelly - Last Filed: 07/19/22 04:39> Decision Time: 08:31 <Stone Thompson - Last Filed: 07/19/22 08:31> Clinical Impression: Acute cholecystitis Disposition: ADMITTED IP TO THIS HOSP Condition: Fair Referrals: Omar Ashton MD [Primary Care Provider] - 1-2 days
[2022-07-19] MEDS: ONDANSETRON 4 MG/2 ML VIAL IVP STA ×2 (02:09→16:46)
[2022-07-19 02:14] LABS: Basophils # (A) 0.1 k/uL (0-0.2); Basophils % (A) 1 %; Eosinophils # (A) 0.1 k/uL (0-0.7); Eosinophils % (A) 1 %; HCT 35.9 % (34.0-46.0); HGB 12.4 gm/dL (11.4-16.0); Lymphocytes # (A) 3.1 k/uL (1.0-4.8); Lymphocytes % (A) 32 %; MCH 32.3 pg (25.0-35.0); MCHC 34.7 g/dL (31.0-37.0); MCV 93.2 fL (80.0-100.0); Mean Platelet Volume 8.4; Monocytes # (A) 0.4 k/uL (0-1.0); Monocytes % (A) 4 %; Neutrophils # (A) 5.9 k/uL (1.3-7.7); Neutrophils % (A) 62 %; Platelet Count 184 k/uL (150-450); RBC 3.85 m/uL (3.80-5.40); RDW 11.4 % (11.5-15.5); WBC 9.6 k/uL (3.8-10.6)
[2022-07-19 02:29] LABS: INR 0.9 (<1.2)
[2022-07-19 02:30] LABS: Partial Thromboplastin Time 26.2 sec (22.0-30.0); Prothrombin Time 9.9 sec (9.0-12.0)
[2022-07-19 02:41] LABS: ALT 79 U/L (4-34); AST 206 U/L (14-36); African American GFR (CKD) >90 (>60 ml/min/1.73 sqM); Alkaline Phosphatase 75 U/L (38-126); Amylase 52 U/L (30-110); Anion Gap 5 mmol/L; Blood Urea Nitrogen 16 mg/dL (7-17); Calcium 9.1 mg/dL (8.4-10.2); Carbon Dioxide 26 mmol/L (22-30); Chloride 105 mmol/L (98-107); Glucose 103 mg/dL (74-99); Lipase 109 U/L (23-300); Non-African American GFR(CKD) >90 (>60 ml/min/1.73 sqM); Sodium 136 mmol/L (137-145); Total Bilirubin 0.7 mg/dL (0.2-1.3); Total Protein 6.6 g/dL (6.3-8.2)
--- NOTE | 2022-07-19 04:22 | CT ---
EXAMINATION TYPE: CT abdomen pelvis w con DATE OF EXAM: 07/19/2022 COMPARISON: 2 views HISTORY: RUQ pain CT DLP: mGycm Automated exposure control for dose reduction was used. CONTRAST: Performed with IV Contrast, patient injected with 100ml mL of Isovue 300. Images obtained from the diaphragm to the floor the pelvis with IV contrast. The lung bases are clear. No pleural effusion. Heart size is normal. No pericardial effusion. There i s mild ectasia of the biliary tree. There is a distended gallbladder that measures 8 x 3 cm. Spleen i s intact. The stomach is intact. No pancreatic mass. There is no adrenal mass. Kidneys show satisfactory contrast opacification. No hydronephrosis. The de layed images show normal renal excretion. Ureters are not dilated. No retroperitoneal adenopathy. Nestor endix is posterior and appears normal. Appendix top normal in size and measures 9 mm. No surrounding inflammation seen. The bladder distends smoothly. No inguinal hernia. No free fluid in the pelvis. Ut erus is anteverted. The lumbar vertebra appear Intact with no compression fracture. Bony pelvis is in tact. The hip joints are intact. IMPRESSION: There is some mild ectasia of the biliary tree and the gallbladder. The common bile duct is 6 mm. No gallbladder wall thickening seen. Clinical significance is not clear. Appendix is top normal in size. No surrounding inflammation.
[2022-07-19] MEDS ORDERED: HYDROmorphone 0.5 MG/0.5 ML SYRINGE IVP STA ×2 (05:45→14:50)
--- NOTE | 2022-07-19 08:00 | US ---
EXAMINATION TYPE: US gallbladder DATE OF EXAM: 07/19/2022 COMPARISON: Same day CT CLINICAL HISTORY: GB. Pt states ABD pain, abnormal CT TECHNIQUE: Multiple sonographic images of the right upper quadrant are obtained. FINDINGS: EXAM MEASUREMENTS: Liver Length: 15.5 cm Gallbladder Wall: 0.4 cm CBD: 0.5 cm Right Kidney: 10.9 x 3.7 x 4.6 cm Pancreas: wnl, tail obscured by overlying bowel gas Liver: wnl Gallbladder: Sludge with gallstones, possible polyps, wall thickened. Evidence for sonographic Haynes's sign: Yes CBD: wnl Right Kidney: wnl, lower pole gassed out . No visualized shadowing calculi, hydronephrosis, or conto ur deforming solid mass. IMPRESSION: Cholelithiasis with possible gallbladder polyps and mild wall thickening with positive sonographic Mu rphy's sign. Findings are consistent with acute cholecystitis.
[2022-07-19] MEDS ORDERED: PIPERACILLIN-TAZOBACTAM 3.375 GM in SODIUM CHLORIDE 0.9% 100 ML IVPB STA ×2 (08:25→16:54)
[2022-07-19] MEDS ORDERED: ACETAMINOPHEN TAB 325 MG TAB PO PRN (08:29)
[2022-07-19] MEDS ORDERED: NALOXONE 0.4 MG/ML 1 ML VIAL IV PRN (08:29)
[2022-07-19] MEDS: SODIUM CHLORIDE 0.9% 1,000 ML IV SCH ×3 (08:52→23:41)
[2022-07-19] MEDS ORDERED: IV FLUID CONTINUATION 1,000 ML IV ONE (16:36)
[2022-07-19] MEDS ORDERED: ONDANSETRON 4 MG/2 ML VIAL ONE (16:44)
[2022-07-19] MEDS ORDERED: DEXAMETHASONE SOD PHOSPHATE 4 MG/ML 1 ML VIAL IVP ONE (16:47)
[2022-07-19] MEDS ORDERED: SCOPOLAMINE 1 MG/72 HR PATCH TRANSDERM ONE (16:48)
--- NOTE | 2022-07-19 17:10 | P.GSHP ---
History of Present Illness H&P Date: 07/19/22 The patient is a 32-year-old female that presented to the ER with persistent abdominal pain. She's been having issues for several months. The pain got very severe several days ago so she came to the ER. Workup is suggestive of acute cholecystitis. She denies having fevers or chills. She's had some nausea. Denies jaundice, tea-colored urine or acholic stool. - Review of Systems All systems: negative Past Medical History Past Medical History: No Reported History History of Any Multi-Drug Resistant Organisms: None Reported Past Surgical History: No Surgical Hx Reported Additional Past Surgical History / Comment(s): D&C Past Anesthesia/Blood Transfusion Reactions: No Reported Reaction Past Psychological History: No Psychological Hx Reported Smoking Status: Never smoker Past Alcohol Use History: Occasional Past Drug Use History: None Reported - Past Family History Mother Additional Family Medical History / Comment(s): immuno-deficiency- unsure what t ype Medications and Allergies Home Medications Medication Instructions Recorded Confirmed Type Omeprazole [PriLOSEC] 40 mg PO AC-BID 07/19/22 07/19/22 History Allergies Allergy/AdvReac Type Severity Reaction Status Date / Time No Known Allergies Allergy Verified 07/19/22 08:48 Surgical - Exam Osteopathic Statement: *. No significant issues noted on an osteopathic stru ctural exam other than those noted in the History and Physical/Consult. Vital Signs Temp Pulse Resp BP Pulse Ox 97.8 F 88 20 150/80 99 07/19/22 01:13 07/19/22 01:13 07/19/22 01:13 07/19/22 01:13 07/19/22 01:13 - General well developed, well nourished, no distress - Eyes normal ocular movement - Neck trachea midline - Respiratory normal respiratory effort, clear to auscultation - Cardiovascular Rhythm: regular Abnormal Heart Sounds: no systolic murmur - Abdomen Abdomen: soft, tender, bowel sounds (Hypoactive) Hernia: no umbilical - Psychiatric oriented to time, oriented to person, oriented to place, speech is normal, memory intact Results - Labs 07/19/22 02:03 07/19/22 02:03 Abnormal Lab Results - Last 24 Hours (Table) 07/19/22 07/19/22 Range/Units 02:03 02:03 RDW 11.4 L (11.5-15.5) % Sodium 136 L (137-145) mmol/L Glucose 103 H (74-99) mg/dL AST 206 H (14-36) U/L ALT 79 H (4-34) U/L Diabetes panel 07/19/22 Range/Units 02:03 Sodium 136 L (137-145) mmol/L Potassium 4.0 (3.5-5.1) mmol/L Chloride 105 (98-107) mmol/L Carbon Dioxide 26 (22-30) mmol/L BUN 16 (7-17) mg/dL Creatinine 0.56 (0.52-1.04) mg/dL Glucose 103 H (74-99) mg/dL Calcium 9.1 (8.4-10.2) mg/dL AST 206 H (14-36) U/L ALT 79 H (4-34) U/L Alkaline Phosphatase 75 (38-126) U/L Total Protein 6.6 (6.3-8.2) g/dL Albumin 4.0 (3.5-5.0) g/dL Calcium panel 07/19/22 Range/Units 02:03 Calcium 9.1 (8.4-10.2) mg/dL Albumin 4.0 (3.5-5.0) g/dL Pituitary panel 07/19/22 Range/Units 02:03 Sodium 136 L (137-145) mmol/L Potassium 4.0 (3.5-5.1) mmol/L Chloride 105 (98-107) mmol/L Carbon Dioxide 26 (22-30) mmol/L BUN 16 (7-17) mg/dL Creatinine 0.56 (0.52-1.04) mg/dL Glucose 103 H (74-99) mg/dL Calcium 9.1 (8.4-10.2) mg/dL Adrenal panel 07/19/22 Range/Units 02:03 Sodium 136 L (137-145) mmol/L Potassium 4.0 (3.5-5.1) mmol/L Chloride 105 (98-107) mmol/L Carbon Dioxide 26 (22-30) mmol/L BUN 16 (7-17) mg/dL Creatinine 0.56 (0.52-1.04) mg/dL Glucose 103 H (74-99) mg/dL Calcium 9.1 (8.4-10.2) mg/dL Total Bilirubin 0.7 (0.2-1.3) mg/dL AST 206 H (14-36) U/L ALT 79 H (4-34) U/L Alkaline Phosphatase 75 (38-126) U/L Total Protein 6.6 (6.3-8.2) g/dL Albumin 4.0 (3.5-5.0) g/dL - Imaging US - abdomen: report reviewed Assessment and Plan (1) Cholelithiasis Current Visit: Yes Status: Acute Code(s): K80.20 - CALCULUS OF GALLBLADDER W/O CHOLECYSTITIS W/O OBSTRUCTION SNOMED Code(s): 293038522 (2) Acute cholecystitis Current Visit: Yes Status: Acute Code(s): K81.0 - ACUTE CHOLECYSTITIS SNOMED Code(s): 46050304 Plan: Laparoscopic cholecystectomy possible open. The procedure, risk and complications were discussed along with the usual postoperative course. Questions were encouraged and answered. Depending how things go she may be able to be discharged tomorrow. Further recommendations to follow
[2022-07-19] MEDS ORDERED: PROPOFOL 10 MG/ML 20 ML VIAL IV ONE (17:21)
[2022-07-19] MEDS ORDERED: NEOSTIGMINE 1 MG/ML 10 ML VIAL ONE (17:21)
[2022-07-19] MEDS ORDERED: KETOROLAC 30 MG/ML 1 ML VIAL ONE (17:21)
[2022-07-19] MEDS ORDERED: HYDROmorphone (PF) 1 MG/ML ONE (17:21)
[2022-07-19] MEDS ORDERED: SUCCINYLCHOLINE CHLORIDE 200 MG/10 ML VIAL IV ONE (17:21)
[2022-07-19] MEDS ORDERED: GLYCOPYRROLATE 0.2 MG/ML 2 ML VIAL ONE (17:21)
[2022-07-19] MEDS ORDERED: MIDAZOLAM 2 MG/2 ML VIAL ONE (17:21)
[2022-07-19] MEDS ORDERED: ROCURONIUM 10 MG/ML (5 ML VIAL) IV ONE (17:21)
[2022-07-19] MEDS ORDERED: LIDOCAINE 4% LTA KIT (4 ML) TOPICAL ONE (17:21)
[2022-07-19] MEDS ORDERED: LIDOCAINE 2% INJ 20 MG/ML (2 ML VIAL) ONE (17:21)
[2022-07-19] MEDS ORDERED: fentaNYL (PF) 50 MCG/ML 2 ML AMP ONE (17:21)
[2022-07-19] MEDS ORDERED: LACTATED RINGERS 1,000 ML IV ONE ×2 (17:24→18:33)
[2022-07-19] MEDS ORDERED: SODIUM CHLORIDE 0.9% 100 ML with ceFAZolin 2,000 MG IV ONE ×2 (17:26)
[2022-07-19] MEDS ORDERED: BUPIVACAIN-EPI 0.25%-1:200,000 30 ML VIAL SQ ONE (17:53)
--- NOTE | 2022-07-19 18:32 | P.OP ---
Date of Procedure: 07/19/22 Preoperative Diagnosis: Cholelithiasis, cholecystitis Postoperative Diagnosis: Cholelithiasis, cholecystitis Procedure(s) Performed: Laparoscopic cholecystectomy Anesthesia: MYRIAM Surgeon: Sherrie Carrasco Estimated Blood Loss (ml): 25 Pathology: other Condition: stable Disposition: PACU Indications for Procedure: Patient presented with symptomatic cholelithiasis and suggestion of acute cholecystitis on ultrasound Description of Procedure: Patient's taken the operative suite where she is prepped and draped in the usual sterile manner under a general endotracheal anesthetic. An infraumbilical incision was made and the Veress needle was placed into the abdominal cavity. Pneumoperitoneum was established with CO2 gas. Sites are chosen for accessory trochars needs are placed through small skin incisions. The liver, diaphragm, large and small bowel are all otherwise grossly normal where seen. There are some adhesions of the omentum to the gallbladder which were taken down bluntly. The cystic artery and cystic duct were then dissected free. There was a stone in the cystic duct which was milked laterally. Cystic duct was then triply clipped and cut. It was a little distended so was further secured with 0 PDS Endoloop. Cystic artery was triply Clipped and cut. The gallbladder is dissected free from the liver bed. Small bleeding points were controlled with electrocautery. The gallbladder was placed into a specimen retrieval bag. The liver bed was irrigated and examined. It was noted to be hemostatic. The excess irrigant was suctioned out. The pneumoperitoneum was released. The trochars were removed. The gallbladder is removed through the umbilical port site. The fascia at the umbilicus was closed with 0 Vicryl. The skin incisions were closed with 4-0 Vicryl in a subcuticular manner. Steri-Strips and dressings were applied. She tolerated the procedure without difficulty and was taken to recovery room in satisfactory condition. According to or personnel, all counts were correct.
[2022-07-19] MEDS ORDERED: ONDANSETRON 4 MG/2 ML VIAL IVP PRN (18:33)
[2022-07-19] MEDS ORDERED: HYDROcodone/APAP 5-325MG 1 EACH TAB PO PRN (18:33)
[2022-07-19] MEDS ORDERED: HYDROmorphone 1 MG/ML 1 ML SYRINGE IVP PRN (18:33)
[2022-07-19] MEDS ORDERED: ONDANSETRON 4 MG/2 ML VIAL IVP ONE (18:48)
[2022-07-19] MEDS ORDERED: HYDROmorphone 0.5 MG/0.5 ML SYRINGE IVP ONE ×2 (18:52→19:23)
[2022-07-19] MEDS ORDERED: SODIUM CHLORIDE 0.9% 1,000 ML IV ONE (20:02)
[2022-07-19] MEDS: HYDROcodone/APAP 5-325MG 1 EACH TAB PO PRN (22:40)
[2022-07-20] MEDS: PIPERACILLIN-TAZOBACTAM 3.375 GM in SODIUM CHLORIDE 0.9% 100 ML IVPB SCH ×4 (00:34→23:01)
[2022-07-20] MEDS: KETOROLAC 15 MG/ML 1 ML VIAL IVP SCH ×5 (00:35→23:13)
[2022-07-20] MEDS: HYDROcodone/APAP 5-325MG 1 EACH TAB PO PRN ×3 (03:28→16:15)
[2022-07-20] MEDS: SODIUM CHLORIDE 0.9% 1,000 ML IV SCH ×3 (06:09→23:03)
--- NOTE | 2022-07-20 15:20 | P.PN ---
Subjective Progress Note Date: 07/20/22 Patient is postop day 1 laparoscopic cholecystectomy for cholecystitis. She's having some chills along with a low-grade fever. No nausea or vomiting. Tolerating a diet. Having some incisional pain. Preop pain is much improved Objective - Vital Signs Vital signs: Vital Signs Temp 99.3 F 07/20/22 14:07 Pulse 76 07/20/22 14:07 Resp 18 07/20/22 14:07 BP 103/67 07/20/22 14:07 Pulse Ox 99 07/20/22 14:07 FiO2 Intake & Output 07/19/22 07/20/22 07/20/22 18:59 06:59 18:59 Intake Total 950 400 240 Output Total 10 Balance 940 400 240 Weight 65.771 kg Intake: IV 950 400 Oral 240 Output: Estimated Blood Loss 10 Other: Voiding Method Toilet # Voids 3 1 2 - Constitutional General appearance: Present: cooperative, no acute distress - Gastrointestinal General gastrointestinal: Present: normal bowel sounds, soft Localized gastrointestinal: surgical scar: diffuse (Dressings are clean and dry) - Labs CBC & Chem 7: 07/19/22 02:03 07/19/22 02:03 Assessment and Plan (1) Cholelithiasis Current Visit: Yes Status: Acute Code(s): K80.20 - CALCULUS OF GALLBLADDER W/O CHOLECYSTITIS W/O OBSTRUCTION SNOMED Code(s): 756565949 (2) Acute cholecystitis Current Visit: Yes Status: Acute Code(s): K81.0 - ACUTE CHOLECYSTITIS SNOMED Code(s): 34132214 Plan: Patient is having a low-grade fever. We'll recheck some lab on her in the morning. Continue the Zosyn. Incentive spirometry. Likely she'll be able to be discharged tomorrow.
[2022-07-21 05:16] VITALS: TEMP 98.3
[2022-07-21] MEDS: KETOROLAC 15 MG/ML 1 ML VIAL IVP SCH (06:29)
[2022-07-21 07:22] LABS: HCT 31.2 % (34.0-46.0); HGB 10.2 gm/dL (11.4-16.0); MCH 31.6 pg (25.0-35.0); MCHC 32.8 g/dL (31.0-37.0); MCV 96.5 fL (80.0-100.0); Mean Platelet Volume 8.8; Platelet Count 163 k/uL (150-450); RBC 3.23 m/uL (3.80-5.40); RDW 11.9 % (11.5-15.5); WBC 7.5 k/uL (3.8-10.6)
[2022-07-21 07:57] VITALS: BP 109/69; PULSE 79; RESP 18
[2022-07-21 08:20] LABS: ALT 313 U/L (4-34); AST 139 U/L (14-36); African American GFR (CKD) >90 (>60 ml/min/1.73 sqM); Albumin 3.1 g/dL (3.5-5.0); Albumin/Globulin Ratio 1.4; Alkaline Phosphatase 87 U/L (38-126); Anion Gap 3 mmol/L; Blood Urea Nitrogen 8 mg/dL (7-17); Calcium 8.2 mg/dL (8.4-10.2); Carbon Dioxide 29 mmol/L (22-30); Chloride 107 mmol/L (98-107); Globulin 2.2 g/dL; Glucose 101 mg/dL (74-99); Non-African American GFR(CKD) >90 (>60 ml/min/1.73 sqM); Potassium 3.7 mmol/L (3.5-5.1); Sodium 139 mmol/L (137-145); Total Bilirubin 0.7 mg/dL (0.2-1.3); Total Protein 5.3 g/dL (6.3-8.2)
== END 2022-07-21 10:36 | disposition home or self-care (01) ==
LOC: EC 00:56 → 6NMEDSUR 08:30
PROVIDERS: ADMIT Surgery; ATTEND Surgery
DX: K80.12 Calculus of gallbladder with acute and chronic cholecystitis without obstruction (principal); K66.0 Peritoneal adhesions (postprocedural) (postinfection); R50.82 Postprocedural fever; Z79.899 Other long term (current) drug therapy; Z98.891 History of uterine scar from previous surgery; Z98.890 Other specified postprocedural states
CPT/HCPCS: 96376; 96375 ×2; 96361; 96374; 99285; 36415; 81025 ×2; 88304; 80053 ×2; 82150; 83690; 85025; 85027; 85610; 85730; 76705; 74177; 47562; G0378 ×3; J2543 ×2; J2250; J0330; J1100; J2710; J2405; J0690; J3010; J1885 ×4; J1170 ×2; J2704; Q9967; J2001

== ENCOUNTER 2022-07-25 00:17 | Inpatient (IN) | payer BC ==
[2022-07-25] MEDS ORDERED: ONDANSETRON 4 MG/2 ML VIAL IVP STA ×2 (00:44→04:44)
[2022-07-25] MEDS ORDERED: MORPHINE SULFATE 4 MG/ML SYRINGE IVP STA ×2 (00:44→02:24)
[2022-07-25 01:06] LABS: AST 737 U/L (14-36); African American GFR (CKD) >90 (>60 ml/min/1.73 sqM); Albumin 4.7 g/dL (3.5-5.0); Alkaline Phosphatase 380 U/L (38-126); Anion Gap 10 mmol/L; Basophils # (A) 0.1 k/uL (0-0.2); Basophils % (A) 1 %; Blood Urea Nitrogen 5 mg/dL (7-17); Calcium 9.6 mg/dL (8.4-10.2); Carbon Dioxide 26 mmol/L (22-30); Chloride 102 mmol/L (98-107); Eosinophils # (A) 0.1 k/uL (0-0.7); Eosinophils % (A) 1 %; Glucose 120 mg/dL (74-99); HCT 39.1 % (34.0-46.0); Lipase 181 U/L (23-300); Lymphocytes # (A) 1.4 k/uL (1.0-4.8); Lymphocytes % (A) 14 %; MCH 32.8 pg (25.0-35.0); MCHC 34.8 g/dL (31.0-37.0); MCV 94.2 fL (80.0-100.0); Mean Platelet Volume 8.6; Monocytes # (A) 0.5 k/uL (0-1.0); Monocytes % (A) 5 %; Neutrophils # (A) 8.1 k/uL (1.3-7.7); Neutrophils % (A) 79 %; Non-African American GFR(CKD) >90 (>60 ml/min/1.73 sqM); Platelet Count 231 k/uL (150-450); Potassium 4.2 mmol/L (3.5-5.1); RBC 4.15 m/uL (3.80-5.40); RDW 11.9 % (11.5-15.5); Sodium 138 mmol/L (137-145); Total Bilirubin 5.9 mg/dL (0.2-1.3); Total Protein 8.1 g/dL (6.3-8.2); WBC 10.2 k/uL (3.8-10.6)
[2022-07-25 01:15] LABS: HGB 13.6 gm/dL (11.4-16.0)
[2022-07-25 01:17] LABS: Appearance,Urine Clear (Clear); Bacteria,Urine Occasional /hpf; Bilirubin,Urine 2+ (Negative); Blood,Urine Small (Negative); Color,Urine Dark Yellow; Glucose,Urine (UA) Negative (Negative); Ketones,Urine Negative (Negative); Leukocyte Esterase,Urine Negative (Negative); Mucus,Urine Rare /hpf; Nitrite,Urine Negative (Negative); PH, Urine 6.5 (5.0-8.0); Protein,Urine Negative (Negative); RBC,Urine 3 /hpf (0-5); Specific Gravity,Urine 1.011 (1.001-1.035); Squamous Epithelial Cell,Urine 2 /hpf (0-4); Urobilinogen,Urine <2.0 mg/dL (<2.0); WBC,Urine 2 /hpf (0-5)
--- NOTE | 2022-07-25 01:39 | XR ---
EXAMINATION TYPE: XR abdomen 1V DATE OF EXAM: 07/25/2022 COMPARISON: NONE HISTORY: Pain TECHNIQUE: 2 views upright FINDINGS: There is no sign of intestinal obstruction or pneumoperitoneum. Fecal pattern is normal. Th ere are clips from cholecystectomy. Lung bases are clear. IMPRESSION: Nonacute abdomen.
--- NOTE | 2022-07-25 01:40 | XR ---
EXAMINATION TYPE: XR chest 2V DATE OF EXAM: 07/25/2022 COMPARISON: NONE HISTORY: Chest pain TECHNIQUE: 2 view FINDINGS: Heart and mediastinum are normal. Lungs are clear. Diaphragm is normal. Bony thorax is norm al. IMPRESSION: Normal chest.
[2022-07-25 01:57] LABS: ALT 845 U/L (4-34)
--- NOTE | 2022-07-25 02:06 | ED ---
General Adult HPI - General Chief complaint: Recheck/Abnormal Lab/Rx Stated complaint: Chest Pain, Vomiting, Nausea, Post-Op Time Seen by Provider: 07/25/22 00:25 Source: patient Mode of arrival: ambulatory - History of Present Illness Initial comments: This is a 32-year-old female with no past medical history presented to the emergency department for abdominal pain. The patient did state that she underwent a cholecystectomy on Monday of this past week and was discharged from the hospital on without any postop pain. The patient stated that over the last 2 days she has had extensive abdominal pain and epigastric pain that is worse at night. The patient stated that the pain was so severe today that she needed to come to the emergency department. The patient stated that she tried to do with the pain at home with her children as it was [place] however now t hat the holiday is over she wanted to be evaluated because the pain was so severe. The patient did report some mild nausea as well. The patient stated that her pain medications were no longer helping with her pain. The patient was however resting in bed able to speak clearly to me but stated that she was in moderate pain secondary to abdominal pain. - Related Data Home Medications Medication Instructions Recorded Confirmed Omeprazole [PriLOSEC] 40 mg PO AC-BID 07/19/22 07/19/22 Previous Rx's Medication Instructions Recorded HYDROcodone/APAP 5-325MG [[place] 1 - 2 tab PO Q6HR PRN #30 tab 07/20/22 5-325] Allergies Allergy/AdvReac Type Severity Reaction Status Date / Time No Known Allergies Allergy Verified 07/25/22 00:23 Review of Systems ROS Statement: Those systems with pertinent positive or pertinent negative responses have been documented in the HPI. ROS Other: All systems not noted in ROS Statement are negative. Past Medical History Past Medical History: No Reported History History of Any Multi-Drug Resistant Organisms: None Reported Past Surgical History: Cholecystectomy Additional Past Surgical History / Comment(s): D&C Past Anesthesia/Blood Transfusion Reactions: No Reported Reaction Past Psychological History: No Psychological Hx Reported Smoking Status: Never smoker Past Alcohol Use History: Occasional Past Drug Use History: None Reported - Past Family History Mother Additional Family Medical History / Comment(s): immuno-deficiency- unsure what type General Exam Limitations: no limitations General appearance: alert, other (In mild distress secondary to epigastric abdominal pain) Head exam: Present: atraumatic, normocephalic, normal inspection Eye exam: Present: normal appearance, PERRL Pupils: Present: normal accommodation ENT exam: Present: normal exam, normal oropharynx, mucous membranes moist Neck exam: Present: normal inspection, full ROM Respiratory exam: Present: normal lung sounds bilaterally Cardiovascular Exam: Present: regular rate, normal rhythm, normal heart sounds GI/Abdominal exam: Present: soft, tenderness (Tenderness noted in the epigastric region, right upper quadrant), normal bowel sounds, other (Incision sites clear, dry and intact) Extremities exam: Present: normal inspection, full ROM, normal capillary refill Back exam: Present: normal inspection, full ROM Neurological exam: Present: alert, oriented X3, CN II-XII intact Psychiatric exam: Present: normal affect, normal mood Skin exam: Present: warm, dry Course Vital Signs 07/25/22 07/25/22 00:20 01:20 Temperature 98 F Pulse Rate 90 68 Respiratory 18 17 Rate Blood Pressure 135/83 123/84 O2 Sat by Pulse 100 99 Oximetry EKG Findings - EKG Comments: EKG Findings:: An EKG was obtained and was interpreted by myself. EKG showed a rate of 78, KS interval 1:30, QRS duration 97 and QTC of 387. This EKG showed a normal sinus rhythm with no ST segment elevation or depression noted. Medical Decision Making - Medical Decision Making Was pt. sent in by a medical professional or institution? @ -No Did you speak to anyone other than the patient for history? @ -Patient's Did you review nursing and triage notes? @ -Triaging notes were reviewed Were old charts reviewed? @ -Yes, previous admission for cholecystectomy was reviewed Differential Diagnosis? @ -Abdominal free air, postsurgical pain, postsurgical infection, choledocholithiasis EKG interpreted by me (3pts min.)? @ -Per above X-rays interpreted by me (1pt min.)? @ -X-ray of the abdomen was obtained and was within normal limits with no acute process noted. CT interpreted by me (1pt min.)? @ -[none] U/S interpreted by me (1pt. min.)? @ -[none] What testing was considered but not performed? (CT, X-rays, U/S, labs)? Why? @Computed tomography scan was considered however due to the patient's possible choledocholithiasis status post recent cholecystectomy, an MRCP was ordered instead. What meds were considered but not given? Why? @ -[none] Did you discuss the management of the patient with other professionals? @ -Yes, Dr. Flores who is covering for the patient's original surgeon, Dr. Carrasco Did you reconcile home meds? @ -[none] Was smoking cessation discussed for >3mins.? @ -[none] Was critical care preformed (if so, how long)? @ -[none] Were there social determinants of health that impacted care today? How? (Homelessness, low income, unemployed, alcoholism, drug addiction, transportation, low edu. Level, literacy, decrease access to med. care, shelter, rehab)? @ -None Was there de-escalation of care discussed even if they declined? (Discuss DNR or withdrawal of care, Hospice)? @ -No What co-morbidities impacted this encounter? (DM, HTN, Smoking, COPD, CAD, Cancer, CVA, Hep., AIDS, mental health diagnosis, sleep apnea, morbid obesity)? @ -None Was patient admitted / discharged? @ -The patient was seen and evaluated in the emergency department. Physical exam, the patient was resting in bed without any acute distress. Vital signs admission were stable and within normal limits. The patient did have significant epigastric abdominal pain in my evaluation. Laboratory workup showed a significant elevation in the bilirubin as well as the liver enzymes. In the setting of recent cholecystectomy, the patient's surgeon was being covered by Dr. Flores and he was contacted regarding these findings. He did suggest an MRCP and then further evaluation to see if gastroenterology need to be consulted or not at this time. He did accept the patient for admission at 0215. The patient was told of this plan and was agreeable. The patient was admitted in stable condition with an MRCP ordered at this time. Undiagnosed new problem with uncertain prognosis? @ -[none] Drug Therapy requiring intensive monitoring for toxicity (Heparin, Nitro, Insulin, Cardizem)? @ -[none] Were any procedures done? @ -[none] Diagnosis/symptom? @ -Abdominal pain, possibly secondary to choledocholithiasis status post recent cholecystectomy Acute, or Chronic, or Acute on Chronic? @ -Acute Uncomplicated (without systemic symptoms) or Complicated (systemic symptoms)? @ -Complicated Side effects of treatment? @ -[none] Exacerbation, Progression, or Severe Exacerbation] @ -[no] Poses a threat to life or bodily function? @ -[no] - Lab Data Result diagrams: 07/25/22 00:32 07/25/22 00:32 Lab Results 07/25/22 07/25/22 07/25/22 Range/Units 00:32 00:32 00:32 WBC 10.2 (3.8-10.6) k/uL RBC 4.15 (3.80-5.40) m/uL Hgb 13.6 D (11.4-16.0) gm/dL Hct 39.1 (34.0-46.0) % MCV 94.2 (80.0-100.0) fL MCH 32.8 (25.0-35.0) pg MCHC 34.8 (31.0-37.0) g/dL RDW 11.9 (11.5-15.5) % Plt Count 231 (150-450) k/uL MPV 8.6 Neutrophils % 79 % Lymphocytes % 14 % Monocytes % 5 % Eosinophils % 1 % Basophils % 1 % Neutrophils # 8.1 H (1.3-7.7) k/uL Lymphocytes # 1.4 (1.0-4.8) k/uL Monocytes # 0.5 (0-1.0) k/uL Eosinophils # 0.1 (0-0.7) k/uL Basophils # 0.1 (0-0.2) k/uL Sodium 138 (137-145) mmol/L Potassium 4.2 (3.5-5.1) mmol/L Chloride 102 (98-107) mmol/L Carbon Dioxide 26 (22-30) mmol/L Anion Gap 10 mmol/L BUN 5 L (7-17) mg/dL Creatinine 0.48 L (0.52-1.04) mg/dL Est GFR (CKD-EPI)AfAm >90 (>60 ml/min/1.73 sqM) Est GFR (CKD-EPI)NonAf >90 (>60 ml/min/1.73 sqM) Glucose 120 H (74-99) mg/dL Plasma Lactic Acid Luis [place]ipe (0.7-2.0) mmol/L Calcium 9.6 (8.4-10.2) mg/dL Magnesium 2.0 (1.6-2.3) mg/dL Total Bilirubin 5.9 H (0.2-1.3) mg/dL AST 737 H (14-36) U/L ALT 845 H (4-34) U/L Alkaline Phosphatase 380 H (38-126) U/L Troponin I <0.012 (0.000-0.034) ng/mL Total Protein 8.1 (6.3-8.2) g/dL Albumin 4.7 (3.5-5.0) g/dL Lipase 181 (23-300) U/L Urine Color Urine Appearance (Clear) Urine pH (5.0-8.0) Ur Specific [place] (1.001-1.035) Urine Protein (Negative) Urine Glucose (UA) (Negative) Urine Ketones (Negative) Urine Blood (Negative) Urine Nitrite (Negative) Urine Bilirubin (Negative) Urine Urobilinogen (<2.0) mg/dL Ur Leukocyte Esterase (Negative) Urine RBC (0-5) /hpf Urine WBC (0-5) /hpf Ur Squamous Epith Cells (0-4) /hpf Urine Bacteria (None) /hpf Urine Mucus (None) /hpf 07/25/22 07/25/22 Range/Units 00:32 01:08 WBC (3.8-10.6) k/uL RBC (3.80-5.40) m/uL Hgb (11.4-16.0) gm/dL Hct (34.0-46.0) % MCV (80.0-100.0) fL MCH (25.0-35.0) pg MCHC (31.0-37.0) g/dL RDW (11.5-15.5) % Plt Count (150-450) k/uL MPV Neutrophils % % Lymphocytes % % Monocytes % % Eosinophils % % Basophils % % Neutrophils # (1.3-7.7) k/uL Lymphocytes # (1.0-4.8) k/uL Monocytes # (0-1.0) k/uL Eosinophils # (0-0.7) k/uL Basophils # (0-0.2) k/uL Sodium (137-145) mmol/L Potassium (3.5-5.1) mmol/L Chloride (98-107) mmol/L Carbon Dioxide (22-30) mmol/L Anion Gap mmol/L BUN (7-17) mg/dL Creatinine (0.52-1.04) mg/dL Est GFR (CKD-EPI)AfAm (>60 ml/min/1.73 sqM) Est GFR (CKD-EPI)NonAf (>60 ml/min/1.73 sqM) Glucose (74-99) mg/dL Plasma Lactic Acid [place] 0.9 (0.7-2.0) mmol/L Calcium (8.4-10.2) mg/dL Magnesium (1.6-2.3) mg/dL Total Bilirubin (0.2-1.3) mg/dL AST (14-36) U/L ALT (4-34) U/L Alkaline Phosphatase (38-126) U/L Troponin I (0.000-0.034) ng/mL Total Protein (6.3-8.2) g/dL Albumin (3.5-5.0) g/dL Lipase (23-300) U/L Urine Color Dark Yellow Urine Appearance Clear (Clear) Urine pH 6.5 (5.0-8.0) Ur Specific [place] 1.011 (1.001-1.035) Urine Protein Negative (Negative) Urine Glucose (UA) Negative (Negative) Urine Ketones Negative (Negative) Urine Blood Small H (Negative) Urine Nitrite Negative (Negative) Urine Bilirubin 2+ H (Negative) Urine Urobilinogen <2.0 (<2.0) mg/dL Ur Leukocyte Esterase Negative (Negative) Urine RBC 3 (0-5) /hpf Urine WBC 2 (0-5) /hpf Ur Squamous Epith Cells 2 (0-4) /hpf Urine Bacteria Occasional H (None) /hpf Urine Mucus Rare H (None) /hpf Disposition Clinical Impression: Elevated LFTs, Choledocholithiasis Disposition: ADMITTED IP TO THIS HOSP Condition: Stable Is patient prescribed a controlled substance at d/c from ED?: No Referrals: Omar Ashton MD [Primary Care Provider] - 1-2 days Time of Disposition: 02:15 Decision to Admit Reason: Admit from EC Decision Date: 07/25/22 Decision Time: 02:15
[2022-07-25] MEDS ORDERED: NALOXONE 0.4 MG/ML 1 ML VIAL IV PRN (02:25)
[2022-07-25] MEDS: SODIUM CHLORIDE 0.9% 1,000 ML IV SCH ×2 (03:10→15:57)
[2022-07-25] MEDS ORDERED: LORazepam 2 MG/ML INJ IV PRN (03:45)
[2022-07-25] MEDS ORDERED: fentaNYL (PF) 50 MCG/ML 2 ML AMP IVP STA (04:38)
[2022-07-25] MEDS: MORPHINE SULFATE 4 MG/ML SYRINGE IV PRN ×3 (06:24→20:11)
--- NOTE | 2022-07-25 11:22 | MR ---
EXAMINATION TYPE: MR MRCP DATE OF EXAM: 07/25/2022 11:01 AM CLINICAL INDICATION:Female, 32 years old with history of Recent cholecystectomy, elevated LFTs; COMPARISON: CT abdomen pelvis 07/19/2022 TECHNIQUE: Multi planar, T2-weighted imaging with and without fat saturation and chemical shift imag ing was performed of the abdomen. Then, heavily T2 weighted imaging (half-Fourier acquisition single- shot turbo spin-echo) was utilized in order to study the biliary system. Maximum intensity projectio n images were reconstructed from the original data of the biliary tree. No Gadolinium given. FINDINGS: MRCP: The intrahepatic ducts have a normal appearance. The common bile duct at the level of the adorno creatic head measures 6 mm in size. Multiple low T2 filling defects are seen in the common bile duct in the pancreatic head (series 301 image 16). The common hepatic duct measures 4 mm in size. The adorno creatic duct is normal. The gallbladder is surgically absent Abdomen: There are motion limits evaluation Liver: Loss of signal on chemical shift of phase imaging. Spleen: Unremarkable. Adrenal glands: Unremarkable. Kidneys: No evidence of obstructive uropathy. Subcentimeter high T2 focus within the left inferior po le consistent probable cyst. Stomach and Bowel: Unremarkable as visualized. Peritoneum: No evidence of pneumoperitoneum, free fluid, or adenopathy. Vasculature: Unremarkable. No aortic aneurysm. Abdominal wall: Unremarkable. Musculoskeletal: The osseous structures appear intact. IMPRESSION: 1. Multiple filling defects within the common bile duct in the pancreatic head most consistent with choledocholiths and/or biliary sludge or blood products from recent surgery. Consider ERCP. 2. No evidence to suggest ductal stricture or biliary ductal dilatation. 3. Hepatic steatosis.
[2022-07-26] MEDS: SODIUM CHLORIDE 0.9% 1,000 ML IV SCH ×2 (06:18→07:49)
[2022-07-26] MEDS: MORPHINE SULFATE 4 MG/ML SYRINGE IV PRN (06:58)
[2022-07-26 08:49] VITALS: BP 110/74; PULSE 87; RESP 18; TEMP 98
== END 2022-07-26 09:38 | disposition left against medical advice (07) | DRG 446 ==
LOC: EC 00:17 → 4SSUR 02:25
PROVIDERS: ADMIT Surgery Surgical Oncology; ATTEND Surgery Surgical Oncology
DX: K80.50 Calculus of bile duct without cholangitis or cholecystitis without obstruction (principal); Z20.822 Contact with and (suspected) exposure to COVID-19; Z28.310 Unvaccinated for COVID-19; Z90.49 Acquired absence of other specified parts of digestive tract
CPT/HCPCS: 36415; 71046; 74018; 74181; 80053; 81001; 83605; 83690; 83735; 84484; 85025; 87635; 93005; 96374; 96375; 96376; 99285